=== PATIENT | female | born 1985 | race Caucasian/White ===

== ENCOUNTER → 2018-12-02 13:05 | Outpatient (CLI) | payer OTHER, MEDICAID, SELFPAY ==
[2018-12-02 15:12] LABS: Free T3, Triiodothyronine Free 2.81 pg/mL (2.77-5.27); Free T4, Direct Thyroxine 0.67 ng/dL (0.78-2.19)
[2018-12-02 15:25] LABS: Thyroid Stimulating Hormone 0.69 uIU/mL (0.47-4.68)
[2018-12-02 16:07] LABS: Urine N gonorrhoeae NOT DETECTED
[2018-12-02 16:14] LABS: Urine Chlamydia NOT DETECTED
[2018-12-02 19:16] LABS: HIV 1 and 2 Antibody NEGATIVE (NEGATIVE); Hep C Virus Ab w/Reflex Quant NEGATIVE s/c (NEGATIVE)
[2018-12-04 12:32] LABS: RPR Screen Nonreactive (Nonreactive)
[2018-12-04 15:15] LABS: Hepatitis B Surf Ab Qualitativ Nonreactive (Nonreactive)
[2018-12-05 18:38] LABS: HSV 1 IgM Screen Negative (Negative); HSV 2 IgM Screen Negative (Negative)
[2018-12-06 12:12] LABS: (tTG) Ab, IgA < 1 U/mL
== END ==
PROVIDERS: PCP Family Medicine; Visit Provider Obstetrics & Gynecology
DX: Z11.3 Encounter for screening for infections with a predominantly sexual mode of transmission (principal); R10.9 Unspecified abdominal pain; R53.83 Other fatigue
CPT/HCPCS: 36415; 83516; 84439; 84443; 84481; 86255; 86592; 86694; 86703; 86706; 86803; 87491; 87591

== ENCOUNTER → 2018-12-08 16:10 | Outpatient (CLI) | payer OTHER, MEDICAID, SELFPAY ==
--- NOTE | 2018-12-08 16:15 | DI.US.S_ITS ---
PROCEDURE: US PELVIC COMPLETE INDICATIONS: PELVIC PAIN TECHNIQUE: Real-time scanning was performed of the pelvic organs, with image documentation. Additional endovaginal scanning was necessary due to incomplete visualization of the adnexal and endometrial structures by transabdominal scanning. COMPARISON: None. FINDINGS: Transabdominal scanning: Limited scanning through the kidneys shows no hydronephrosis. No pathologic free abdominal or pelvic fluid. Endovaginal scanning: Uterus: Uterus is normal in size at 9.1 x 4.9 x 5.5 cm. The endometrium measures 4 mm in combined thickness. Patient is status post . There is a mild thinning of the myometrium at the level of scar. Ovaries: Right ovary measures 43 x 21 x 28 mm. Left ovary measures 42 x 25 x 29 mm. Bilateral follicles are noted. IMPRESSION: 1. Mild thinning of the myometrium at the level of scar of uncertain clinical etiology. Dictated by: Savannah Rudd M.D. on 12/09/2018 at 9:40 Approved by: Savannah Rudd M.D. on 12/09/2018 at 9:42
== END ==
PROVIDERS: Family Provider Family Medicine; PCP Family Medicine; Visit Provider Obstetrics & Gynecology
DX: R10.2 Pelvic and perineal pain (principal)
CPT/HCPCS: 76830; 76856